=== PATIENT | female | born 1985 | race African-American/Black ===

== ENCOUNTER 2017-02-27 20:03 | Emergency (ER) | payer SELFPAY ==
[~2017-02-27] VITALS: Ht 165.1 cm; Wt 68.0 kg
--- NOTE | 2017-02-27 20:08 | NUR ---
PT TAKEN TO BED 6 Addendum: 02/27/17 at 2010 by G[facility]. TAKEN TO BED 6
[2017-02-27 20:10] VITALS: BP 122/76
--- NOTE | 2017-02-27 20:14 | NUR ---
PATIENT LEFT WITHOUT BEING SEEN BY DR. HATHAWAY. NO FURTHER CARE PROVIDED FOR PATIENT. PT WAS BROUGHT IN BY EMS, PT WAS PLACED IN BED AND RN WAS TRYING TO OBTAIN VITAL SIGNS AND PT DECIDED TO SHE DID NOT WANT TO BE SEEN. DR HATHAWAY WAS MADE AWARE.
== END 2017-02-27 20:14 | disposition left against medical advice (07) ==
LOC: MED 20:03
DX: R11.10 Vomiting, unspecified (principal); R53.83 Other fatigue; Z53.21 Procedure and treatment not carried out due to patient leaving prior to being seen by health care provider